=== PATIENT | male | born 1940 | race Caucasian/White ===

== ENCOUNTER 2016-09-04 08:14 | Day surgery (SDC) | payer MEDICARE, OTHER ==
--- NOTE | ~2016-09-04 | EGD ---
EGD REPORT [facility] [address] [address] NAME: ANDRES LAWRENCE : [birth year] STATUS : REG [facility]#: [id number] AGE: 76 ADM/REG DATE : 09/04/16 MR#: [id number] REPORT SERV DATE: 09/04/16 DICTATED BY: STALIN KIM DATE: 09/04/16 REPORT STATUS : Draft TRANSCRIBED BY: [facility] DATE: 09/04/16 Endoscopy Center Patient Name: Andres Lawrence Date of : 1940 Attending MD: STALIN KIM MD Procedure Date No Time: 09/04/2016 Procedure: Colonoscopy Indications: Screening for colorectal malignant neoplasm Referring MD: SUSAN REILLY Medicines: Propofol per Anesthesia Complications: No immediate complications. Procedure: Pre-Anesthesia Assessment: - ASA Grade Assessment: III - A patient with severe systemic disease. After I obtained informed consent, the scope was passed under direct vision. Throughout the procedure, the patient's blood pressure, pulse, and oxygen saturations were monitored continuously. The CF [id number] was introduced through the anus and advanced to the cecum, identified by appendiceal orifice and ileocecal valve. The colonoscopy was performed without difficulty. The patient tolerated the procedure well. The quality of the bowel preparation was good. Findings: The perianal and digital rectal examinations were normal. Many medium-mouthed diverticula were found in the recto-sigmoid colon, in the sigmoid colon and in the descending colon. Internal hemorrhoids were found during retroflexion and were Grade I (internal hemorrhoids that do not prolapse). The rest of the colon was normal. Impression: - Diverticulosis in the recto-sigmoid colon, in the sigmoid colon and in the descending colon. - Internal hemorrhoids. Procedure Code(s): --- Professional --- G0121, Colorectal cancer screening; colonoscopy on individual not meeting criteria for high risk Diagnosis Code(s): --- Professional --- K64.0, First degree hemorrhoids K57.30, Diverticulosis of large intestine without perforation or abscess without bleeding Z12.11, Encounter for screening for malignant neoplasm EGD REPORT [facility] [address] [address] NAME: ANDRES LAWRENCE : [birth year] STATUS : REG [facility] PAT#: [id number] AGE: 76 ADM/REG DATE : 09/04/16 MR#: [id number] REPORT SERV DATE: 09/04/16 DICTATED BY: STALIN KIM. DATE: 09/04/16 REPORT STATUS : Draft TRANSCRIBED BY: [employer] DATE: 09/04/16 of colon CPT copyright 2013 [employer]. All rights reserved. The codes documented in this report are preliminary and upon configuration management administrator review may be revised to meet current compliance requirements. Stalin Kim MD STALIN KIM MD 09/04/2016 9:55 AM This report has been signed electronically. Number of Addenda: 0 Note Initiated On: 09/04/2016 9:18 AM Scope Withdrawal Time 0 hours 9 minutes 29 seconds [address] [address]
--- NOTE | ~2016-09-04 | EGD ---
EGD REPORT [facility] [address] [address] NAME: ANDRES LAWRENCE : [birth year] STATUS : REG [facility]#: [id number] AGE: 76 ADM/REG DATE : 09/04/16 MR#: [id number] REPORT SERV DATE: 09/04/16 DICTATED BY: STALIN KIM DATE: 09/04/16 REPORT STATUS : Draft TRANSCRIBED BY: [facility] DATE: 09/04/16 Endoscopy Center Patient Name: Andres Lawrence Date of : 1940 Attending MD: STALIN KIM MD Procedure Date No Time: 09/04/2016 Procedure: Upper GI endoscopy Indications: Follow-up of Silva's esophagus Referring MD: SUSAN REILLY Medicines: Propofol per Anesthesia Complications: No immediate complications. Procedure: Pre-Anesthesia Assessment: - ASA Grade Assessment: III - A patient with severe systemic disease. After obtaining informed consent, the endoscope was passed under direct vision. Throughout the procedure, the patient's blood pressure, pulse, and oxygen saturations were monitored continuously. The GIF [id number] was introduced through the mouth, and advanced to the second part of duodenum. The upper GI endoscopy was accomplished without difficulty. The patient tolerated the procedure well. 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 The maximum longitudinal extent of these mucosal changes was 10 cm in length. Mucosa was biopsied with a cold forceps for histology in 4 quadrants at intervals of 2 cm in the lower third of the esophagus. One specimen bottle was sent to pathology. Diffuse moderate inflammation characterized by erosions, erythema and friability was found in the stomach. The examined duodenum was normal. 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 Biopsied. - Chronic gastritis. - Normal examined duodenum. Recommendation: - Discharge patient to home. - Discharge patient to home. Procedure Code(s): --- Professional --- 42909, Esophagogastroduodenoscopy, flexible, transoral; with biopsy, single or multiple EGD REPORT [address] [address] NAME: ANDRES LAWRENCE : [birth year] STATUS : REG [facility] PAT#: [id number] AGE: 76 ADM/REG DATE : 09/04/16 MR#: [id number] REPORT SERV DATE: 09/04/16 DICTATED BY: STALIN KIM. DATE: 09/04/16 REPORT STATUS : Draft TRANSCRIBED BY: [employer] DATE: 09/04/16 Diagnosis Code(s): --- Professional --- K22.70, Silva's esophagus without dysplasia K29.50, Unspecified chronic gastritis without bleeding CPT copyright 2013 [employer]. All rights reserved. The codes documented in this report are preliminary and upon embossing machine operator helper review may be revised to meet current compliance requirements. Stalin Kim MD STALIN KIM MD 09/04/2016 9:39 AM This report has been signed electronically. Number of Addenda: 0 Note Initiated On: 09/04/2016 9:19 AM Scope Withdrawal Time 0 hours 0 minutes 0 seconds [address] [facility] Center[place] [address]
[~2016-09-04 08:14] MED LIST: AMB10 PO; B121000P IM; CARDURA XL4 MG PO; DILT-XR240 MG PO; FERROUS SULF325 M1 PO; GLUCOTRO10 PO; GLUCPH8 PO; HCTZ25B PO; HYDROCHLOROT12.5 MG PO; HYDROCHLOROT25 MG PO; JANUVIA50 PO; LIPITOR20 PO; NEUR100 PO; NEUR800 PO; PCET PO; PRADAXA150 MG PO; PRAVACHOL40 MG PO; REST15 PO; ULTRAM50 PO; VASOTEC20 MG PO
[2016-10-29] MEDS ORDERED: PRILOSEC40 MG PO (18:19)
[2017-03-04] MEDS ORDERED: PRADAXA150 MG PO (12:09)
[2017-03-04] MEDS ORDERED: GLUCOTROL5 PO (13:22)
[2017-03-04] MEDS ORDERED: GLUCOPHAGE1000 MG PO (13:24)
[2017-03-04] MEDS ORDERED: PRILO PO (13:24)
[2017-03-04] MEDS ORDERED: AMB10 PO (13:25)
[2017-03-04] MEDS ORDERED: RANITIDINE300 MG PO (13:25)
[2017-03-04] MEDS ORDERED: REST15 PO (13:33)
== END 2016-09-04 23:59 | disposition home or self-care (01) ==
LOC: DMU 08:14
PROVIDERS: Internal Medicine Gastroenterology
PROC: 0DB38ZX Excision of Lower Esophagus, Via Natural or Artificial Opening Endoscopic, Diagnostic (ICD-10-PCS; principal; 2016-09-04 10:00)
PROC: 0DJD8ZZ Inspection of Lower Intestinal Tract, Via Natural or Artificial Opening Endoscopic (ICD-10-PCS; 2016-09-04 10:00)
DX: Z12.11 Encounter for screening for malignant neoplasm of colon (principal); K64.0 First degree hemorrhoids; K57.30 Diverticulosis of large intestine without perforation or abscess without bleeding; K29.50 Unspecified chronic gastritis without bleeding; I10 Essential (primary) hypertension; I48.91 Unspecified atrial fibrillation; E11.9 Type 2 diabetes mellitus without complications; E78.00 Pure hypercholesterolemia, unspecified; K21.9 Gastro-esophageal reflux disease without esophagitis; D64.9 Anemia, unspecified; Z87.01 Personal history of pneumonia (recurrent); Z90.49 Acquired absence of other specified parts of digestive tract; Z98.890 Other specified postprocedural states
CPT/HCPCS: 43239; G0121; 82962; 88305

== ENCOUNTER 2016-11-01 10:26 | Day surgery (SDC) | payer MEDICARE, OTHER ==
[2016-10-25 11:47] LABS: HEMATOCRIT 35.8 % (40.0-51.0); HEMOGLOBIN 11.8 g/dL (13.6-17.8)
[2016-10-25 12:10] LABS: CALCIUM, SERUM 9.4 MG/DL (8.5-10.4); CHLORIDE, SERUM 106 MMOL/L (96-112); CO2 (CARBON DIOXIDE) 30 MMOL/L (24-34); CREATININE 1.04 MG/DL (0.70-1.30); GFR AFRICAN AMERICAN 80 ML/MIN (>=60); GFR NON AFRICAN AMERICAN 69 ML/MIN (>=60); POTASSIUM, SERUM 4.4 MMOL/L (3.5-5.3); SODIUM, SERUM 143 MMOL/L (135-148)
[2016-10-25 12:11] LABS: BUN (BLOOD UREA NITROGEN) 17 MG/DL (6-23); GLUCOSE, SERUM 216 MG/DL (60-99)
--- NOTE | ~2016-11-01 | OP ---
Record Of Operation [facility] [address] [place]. [address] NAME: ANDRES LAWRENCE : [birth year] STATUS : [facility]#: [id number] AGE: 76 ADM/REG DATE : 11/01/16 MR#: [id number] REPORT SERV DATE: 11/01/16 DICTATED BY: Kim MCNEIL DATE: 11/01/16 REPORT STATUS : Draft TRANSCRIBED BY: [employer] DATE: 11/01/16 DATE OF PROCEDURE: 11/01/2016 PREOPERATIVE DIAGNOSES: 1. Phimosis. 2. Urinary incontinence. POSTOPERATIVE DIAGNOSES: 1. Phimosis. 2. Urinary incontinence. PROCEDURE: Circumcision, insertion of Yoo catheter. ANESTHESIA: General. COMPLICATIONS: None. DRAINS: 18-[place] Yoo catheter. BRIEF HISTORY: Mr. Lawrence is a 76-year-old white male with severe incontinence. He had a history of prostate cancer, treated with brachytherapy in 2007. His incontinence has caused severe irritation to the end of his foreskin and it was felt that perhaps this irritated foreskin might be less irritated if removed. It was also becoming impossible to retract. The risks of bleeding, infection, anesthesia, injury to adjacent organs, inability to improve his irritation, and need for a Yoo catheter postoperatively were all discussed. There were no unanswered questions. DESCRIPTION OF PROCEDURE: Under excellent general anesthesia, the patient was prepped and draped in standard supine position. A circumferential incision was made after being marked in the area of the foreskin with a small V in the area of the frenulum. This was made at the level of the coronal sulcus. The foreskin was then retracted with much difficulty in about 0.5 cm from the coronal sulcus. A circumferential incision was made in the inner preputial skin. This bridge of skin was then divided in the midline and dissected sharply off the penis. Small bleeders were electrocoagulated and the penile skin was then sutured with interrupted 3-0 chromic sutures. A suture was placed in each quadrant and a box-type suture was placed near the frenulum. In between these, individual ties were made including one in the area of the ventral coronal sulcus. Excellent cosmetic result was achieved. Sterile dressing of Vaseline gauze, sterile gauze, and Coban was then applied. An 18-[place] Yoo catheter was placed with mild difficulty proximally but clear urine was obtained to keep his wound form being soaked. I plan to discharge Mr. Lawrence as an outpatient with following instructions. DISCHARGE INSTRUCTIONS: 1. Home today. 2. Percocet 5/325 one to two p.o. q.4 hours p.r.n. pain, #20. 3. He can remove his dressing in 36-48 hours. Record Of Operation [address] [place] [facility] [place] [facility] [place] [address] NAME: ANDRES LAWRENCE : [birth year] STATUS : [facility]#: [id number] AGE: 76 ADM/REG DATE : 11/01/16 MR#: [id number] REPORT SERV DATE: 11/01/16 DICTATED BY: Kim MCNEIL DATE: 11/01/16 REPORT STATUS : Draft TRANSCRIBED BY: [employer] DATE: 11/01/16 4. The catheter can be removed in three-four days either at home by the patient or in my office on Friday. EDUARD/KOBY Kim Mcneil M.D. / [id number] CC: Renae White M.D.
[~2016-11-01 10:26] MED LIST changes: +PRILOSEC40 MG PO
[2017-03-04] MEDS ORDERED: PRADAXA150 MG PO (12:09)
[2017-03-04] MEDS ORDERED: GLUCOTROL5 PO (13:22)
[2017-03-04] MEDS ORDERED: PRILO PO (13:24)
[2017-03-04] MEDS ORDERED: GLUCOPHAGE1000 MG PO (13:24)
[2017-03-04] MEDS ORDERED: RANITIDINE300 MG PO (13:25)
[2017-03-04] MEDS ORDERED: AMB10 PO (13:25)
[2017-03-04] MEDS ORDERED: REST15 PO (13:33)
== END 2016-11-01 17:26 | disposition home or self-care (01) ==
LOC: SDC 10:26
PROC: 0VTTXZZ Resection of Prepuce, External Approach (ICD-10-PCS; principal; 2016-11-01 12:45)
DX: N48.0 Leukoplakia of penis (principal); R32 Unspecified urinary incontinence; N47.1 Phimosis; I48.91 Unspecified atrial fibrillation; I10 Essential (primary) hypertension; J69.0 Pneumonitis due to inhalation of food and vomit; E11.9 Type 2 diabetes mellitus without complications; K44.9 Diaphragmatic hernia without obstruction or gangrene; K21.9 Gastro-esophageal reflux disease without esophagitis; Z79.899 Other long term (current) drug therapy; Z79.84 Long term (current) use of oral hypoglycemic drugs
CPT/HCPCS: 80048; 82962; 85014; 85018; 88304; 93005; A9270-GY; J0690; J2405; J2710; J3010